=== PATIENT | male | born 1965 ===

== ENCOUNTER 2022-05-04 06:54 | Emergency (ER) | payer OTHER ==
[2022-05-04 07:26] LABS: BASOPHIL 0.3 % (0-2); EOSINOPHIL 1.4 % (0-5); HCT 47.5 % (42.0-52.0); HGB 15.8 g/dl (13.2-18.0); MCH 32.4 pg (25.0-31.0); MCHC 33.3 g/dL (32.0-36.0); MCV 97.3 fL (78.0-100.0); MONOCYTE 11.7 % (0-12); MPV 8.9 fL (6.0-9.5); NEUTROPHIL 59.3 % (41-80); NRBC 0; PLT 316 K/uL (150-400); RBC 4.88 M/uL (4.70-6.00); RDW 12.9 % (11.5-14.0); WBC 14.4 K/uL (4.0-10.5)
[2022-05-04 07:32] LABS: INR 1.06 (0.9-1.2); PROTHROMBIN TIME 13.5 SECONDS (11.9-13.9); PTT 31.3 SECONDS (24.9-34.6)
[2022-05-04 07:42] LABS: ALBUMIN 3.6 g/dL (3.4-5.0); ALKALINE PHOSHATASE 86 U/L (46-116); ALT 32 U/L (16-63); AST 16 U/L (15-37); BILIRUBIN - TOTAL 0.8 mg/dL (0.2-1.0); BUN 18 mg/dL (7-18); BUN/CREAT RATIO (CALC) 19.4 RATIO; CHLORIDE 100 mmol/L (98-107); CO2 (BICARBONATE) 31 mmol/L (21-32); CREATININE 0.93 mg/dL (0.67-1.17); GLOBULIN (CALCULATION) 3.8 g/dL; GLUCOSE 123 mg/dL (74-106); POTASSIUM 3.9 mmol/L (3.5-5.1); TOTAL PROTEIN 7.4 g/dL (6.4-8.2)
[2022-05-04] MEDS ORDERED: AZITHROMYCIN250 MG PO (10:32)
== END 2022-05-04 11:04 | disposition home or self-care (01) ==
LOC: FER 06:54
PROVIDERS: Emergency Medicine
DX: J18.9 Pneumonia, unspecified organism (principal); F17.210 Nicotine dependence, cigarettes, uncomplicated; Z20.822 Contact with and (suspected) exposure to COVID-19
CPT/HCPCS: 36415; 71045; 71275; 80053; 84484; 85025; 85379; 85610; 85730; 93005; Q9967; U0002